=== PATIENT | male | born 1965 | race Caucasian/White ===

== ENCOUNTER → 2018-08-15 | Outpatient (CLI) | payer OTHER ==
--- NOTE | 2018-08-15 08:50 | US ---
EXAMINATION TYPE: US carotid duplex BILAT DATE OF EXAM: 08/15/2018 COMPARISON: NONE CLINICAL HISTORY: H93.1 Tinnitis, I65.2 Carotid stenosis. Tinnitis EXAM MEASUREMENTS: RIGHT: Peak Systolic Velocity (PSV) cm/sec ----- Right CCA: 115.8 ----- Right ICA: 128.7 ----- Right ECA: 146.5 ICA/CCA ratio: 1.1 RIGHT: End Diastole cm/sec ----- Right CCA: 36.5 ----- Right ICA: 57.6 ----- Right ECA: 33.3 LEFT: Peak Systolic Velocity (PSV) cm/sec ----- Left CCA: 82.2 ----- Left ICA: 160.3 ----- Left ECA: 164.8 ICA/CCA ratio: 2.0 LEFT: End Diastole cm/sec ----- Left CCA: 29.3 ----- Left ICA: 38.8 ----- Left ECA: 40.6 VERTEBRALS (direction of flow): Right Vertebral: Antegrade Left Vertebral: Antegrade Rhythm: Normal Tiny amount of calcified plaque bilateral bulbs. Tortuous ICA bilaterally. Intimal thickening is noted. IMPRESSION: 1. Intimal thickening atheromatous plaquing contributing to flow-limiting stenosis. This is moderate on the right and left, between 50 and 69%. Left has more elevated velocity within the right Criteria for Assigning % of Stenosis / Diameter reduction (Estimation based on the indirect measurements of the internal carotid artery velocities (ICA PSV). 1. Normal (no stenosis)=ICA PSV < 125 cm/s: ratio < 2.0: ICA EDV<40 cm/s. 2. Less than 50% stenosis=ICA PSV < 125 cm/s: ratio < 2.0: ICA EDV<40 cm/s. 3. 50 to 69% stenosis=ICA PSV of 125 to 230 cm/s: ration 2.0 ? 4.0: ICA EDV 40-100 cm/s. 4. Greater than 70% stenosis to near occlusion= ICA PSV > 230 cm/s: ratio > 4.0: ICA EDV > 100 cm/s. 5. Near occlusion= ICA PSV velocities may be low or undetectable: variable ratio and ICA EDV. 6. Total occlusion=unable to detect flow.
== END ==
LOC: RADUSWWP 08:06
PROVIDERS: ATTEND Family Medicine
DX: I65.23 Occlusion and stenosis of bilateral carotid arteries (principal)
CPT/HCPCS: 93880

== ENCOUNTER → 2021-08-24 | Outpatient (CLI) | payer OTHER | END | disposition home or self-care (01) | LOC: LABWHC1 15:12 | PROVIDERS: ATTEND Family Medicine | DX: E87.8 Other disorders of electrolyte and fluid balance, not elsewhere classified (principal) | CPT/HCPCS: 36415; 84132 ==